=== PATIENT | male | born 1975 | race Two or more races ===

== ENCOUNTER 2019-12-07 19:12 | Emergency (ER) | payer SELFPAY ==
[~2019-12-07] VITALS: Ht 165.1 cm; Wt 68.0 kg
--- NOTE | 2019-12-07 19:30 | NUR ---
PT BIBRA [address] F[address] L[address]ING DOWN ON THE STRE[address]. PER EMS, BP OF THE PT IN THE 80'S. BP HERE 107/64. PT AAOX4, VSS, RESPIRATIONS EVEN AND UNLABORED ON RA W/ NAD NOTED. PT CONNECTED TO THE COMPRESSOR OPERATOR AND POX.
--- NOTE | 2019-12-07 20:00 | NUR ---
WIRE DROPPER AT BEDSIDE FOR BLOOD DRAW
[2019-12-07] MEDS ORDERED: IV NS 0.9% 1,000 ML BAG IV ONE (20:30)
[2019-12-07 20:38] LABS: BASOPHILS % (AUTO) 0.8 % (0.0-2.0); EOSINOPHILS % (AUTO) 3.5 % (0.0-6.0); HEMATOCRIT 42 % (39-51); HEMOGLOBIN 13.6 g/dL (13.5-17.5); MEAN CORPUSCULAR HGB CONC 33 g/dl (31.0-36.0); MEAN CORPUSCULAR VOLUME 96 fL (80-96); MONOCYTES # (AUTO) 0.4 /CMM (0.1-1.30); MONOCYTES % (AUTO) 8.7 % (2.0-12.0); NEUTROPHILS # (AUTO) 1.9 /CMM (1.8-8.9); PLATELET COUNT (AUTO) 249 /CMM (150-450); RED BLOOD CELL COUNT(AUTO) 4.33 MIL/uL (4.5-6.0); WHITE BLOOD COUNT (AUTO) 4.4 K/uL (4.3-11.0)
--- NOTE | 2019-12-07 20:45 | NUR ---
MULTIPLE ATTEMPT S TO INSERT AN IV LINE. UNSUCCESSFUL. PA MADE AWARE. CURRENT BP: 111/67
[2019-12-07 21:34] LABS: CALCIUM, SERUM 8.6 mg/dL (8.5-10.1); CREATININE 0.7 mg/dL (0.6-1.3); POTASSIUM 3.5 mmol/L (3.5-5.1)
[2019-12-07 21:47] LABS: ALBUMIN 3.4 g/dL (3.4-5.0); BILIRUBIN,DIRECT 0.2 mg/dL (0.0-0.2); BILIRUBIN,TOTAL 0.5 mg/dL (0.2-1.0); TOTAL PROTEIN, SERUM 8.5 g/dL (6.4-8.2)
--- NOTE | 2019-12-07 23:26 | NUR ---
pt is sitting in bed awake and laert. eating sandwich, refused any pain or discomfort . vss.
--- NOTE | 2019-12-08 00:15 | NUR ---
PT ALERT AND ORIENTED, VERBALIXED WILLING TO LEAVE. AMBULATORY TO THE BATHROOM W. STABLE CONDITION. MEDICALLY STABLE FOR D/C PER MD. PT WAS PROVIDED W/ FOOD AND SNACKS. REFUSED THE REFFERAL AND THE LIST FOR THE SHELTERS. PT ALSO REFUSED TRANSPORTATION/ BUS TAB CARD. PT HAD PROPER CLOTHES ON UPON DISCHARGE. PT SIGNED THE HOMELESS WAIVER FORM/
[2019-12-08 00:25] VITALS: BP 113/72
== END 2019-12-08 00:27 | disposition home or self-care (01) ==
LOC: ER 19:16
DX: F10.129 Alcohol abuse with intoxication, unspecified (principal); E86.0 Dehydration; Y90.6 Blood alcohol level of 120-199 mg/100 ml; Z59.0 Homelessness
CPT/HCPCS: 36415; 80048-TC; 80076-TC; 82962-TC; 83690-TC; 83735-TC; 85025-TC; G0480; J7030